=== PATIENT | male | born 1950 | race African-American/Black ===

== ENCOUNTER 2017-02-18 05:32 | Emergency (ER) | payer MEDICARE, OTHER ==
[2017-02-18] MEDS ORDERED: ALBUTEROL SULFATE/IPRATROPIUM 3 ML NEBU IH ONE ×4 (06:00→07:13)
--- NOTE | 2017-02-18 06:07 | ERNOTE ---
Dyspnea - Date Date of Service: 02/18/17 - General Presenting Symptoms: shortness of breath Time Seen by Provider: 02/18/17 06:07 Source: patient, family Exam Limitations: no limitations - Immun/Allergies/Home Medications Immunizations: IMMUNIZATION HX Immunizations Up to Date Yes History of Influenza Vaccine Yes Hx Pneumococcal Vaccination No Allergies/Adverse Reactions: Allergies bee venom protein (honey bee) Allergy (Verified 02/18/17 06:00) Home Medications: HOME MEDICATIONS Albuterol Sulfate [Ventolin Hfa] 1 - 2 puff IH Q4H PRN 11/22/14 [Last Taken Unknown] EPINEPHrine [Epipen 2-Teddy] 0.3 mg IM ONCE PRN 11/22/14 [Last Taken Unknown] Lisinopril/Hydrochlorothiazide [Lisinopril-Hctz 10-12.5 mg Tab] 1 each PO DAILY #14 tablet 05/05/15 [Last Taken Unknown] Albuterol Sulfate [Ventolin HFA] 1 - 2 puff IH QID PRN #1 inhaler 02/18/17 [ Last Taken Unknown] Cholecalciferol [Vitamin D] 1,000 unit MC DAILY 02/18/17 [Last Taken Unknown] Methylprednisolone [Medrol Dosepak] 4 mg PO DAILY #21 tab.ds.pk 02/18/17 [Last Taken Unknown] [place] Oil/[place]-3 Fatty Acids [Fish Oil] 1,200 mg PO DAILY 02/18/17 [Last Taken Unknown] - History of Present Illness Narrative: Pt had onset of shortness of breath last evening accompanied by coughing Severity: moderate Treatment [employer]: albuterol - old inhaler Initiating event: Reports: unknown Frequency of episodes: Reports: occassional episodes - previous episode 2-3 years ago Modifying Factors - (Improves): Reports: nothing Modifying Factors (Worsens): Reports: activity Associated Symptoms-Dyspnea: Reports: denies symptoms Review of Systems - Review of Systems Constitutional: Absent: recent illness, fever EYE: Present: no symptoms reported ENT: Absent: nose congestion, nasal drainage Respiratory: Present: See HPI, other - denies any sputum production Cardiology: Absent: chest pain, palpitations Gastrointestinal/Abdominal: Absent: nausea Genitourinary: Present: no symptoms reported Musculoskeletal: Present: no symptoms reported Skin: Present: no symptoms reported Neurological: Absent: headache, dizziness/light-headedness Endocrine: Present: no symptoms reported Hematologic/Lymphatic: Present: no symptoms reported Psych: Present: no symptoms reported - Patient's Past Medical History Patient History - Medical: No pertinent hx Patient History - Cardiac/Respiratory: COPD, Hypertension Patient History - Cancer: No Hx of Cancer Patient History - Surgical Procedures: Colonoscopy, Other Patient History - Other: None - Social History Living Situations: significant other Psych History: No pertinent hx Smoking Status: Current every day smoker Do you dip or chew tobacco: No Alcohol Use: occasionally Drug Use: marijuana - Immunizations Immunizations Up to Date: Yes Hx Pneumococcal Vaccination: No History of Influenza Vaccine: Yes Physical Exam - Physical Exam General Appearance: Present: wd/wn, alert, mild distress Eye Exam: Normal inspection: bilateral, PERRL: bilateral, EOMI: bilateral Ears, Nose, Throat: Present: normal ENT inspection Neck: Present: normal inspection, nontender, supple Respiratory: Present: rales, rhonchi, wheezing Cardiovascular/Chest: Present: tachycardia Extremity Exam: Present: normal inspection, normal range of motion, no edema Neurological Exam: Present: alert, oriented, normal mood/affect Skin Exam: Present: normal color, warm/dry Lymphatic Exam: Present: no adenopathy ED Progress - Results and Orders Patient's Lab Results:: I have reviewed the patient's lab results. Results and Orders: Laboratory Tests 02/18/17 02/18/17 02/18/17 06:10 06:10 06:10 WBC 8.8 Hgb 14.0 Hct 43.3 Plt Count 237 D-Dimer 0.44 Sodium 144 H Potassium 3.9 Chloride 105 Carbon Dioxide 31.2 Anion Gap 11.7 BUN 15 Creatinine 1.29 Est GFR (Non-Af Amer) 72 BUN/Creatinine Ratio 11.6 Random Glucose 112 H Calcium 9.0 Total Bilirubin 0.3 AST 20 ALT 31 Alkaline Phosphatase 68 Total Protein 7.6 Albumin 4.0 Influenza Type A Ag Influenza Type B Ag 02/18/17 06:10 WBC Hgb Hct Plt Count D-Dimer Sodium Potassium Chloride Carbon Dioxide Anion Gap BUN Creatinine Est GFR (Non-Af Amer) BUN/Creatinine Ratio Random Glucose Calcium Total Bilirubin AST ALT Alkaline Phosphatase Total Protein Albumin Influenza Type A Ag Negative Influenza Type B Ag Negative - Vital Signs Patient's Vital Signs:: I have reviewed the patient's vital signs. Vital Signs: Vital Signs 05/23/17 05:39 Temperature 37.0 C Pulse Rate 99 Respiratory 22 H Rate Blood Pressure 136/99 O2 Sat by Pulse 98 Oximetry - EKG EKG: other EKG read: Interp. by me EKG Comments: Sinus tachycardia with vent rate at 100, due to shortness of breath - X-Ray X-Ray #1 X-Ray: chest Interpretation: Interp. by me X-ray Comments: No infiltrate or effusion. hyperinflation with flattening of diaphragms suggesting COPD. - Progress/Reassessment Chief Complaint: Dyspnea Progress:: Improved Progress Note-Subjective: 02/18/17 07:12 Mild expiratory wheezes remain. Pt no longer feels short of breath 02/18/17 07:19 Discussed smoking cessation, Pt agrees with need to quit, makes no commitment to attempt cessation Departure Clinical Impression: Bronchitis - Departure Disposition: Home Follow Up Needed Condition: Good Instructions: Smoking Cessation, Tips for Success, [id number], Acute Bronchitis, [id number] Additional Instructions: Stopping smoking is your best way to avoid episodes such as this. See your regular doctor in 3-5 days to check on your progress Referrals: Kyle Gagnon DO [Primary Care Provider] - Prescriptions: Albuterol Sulfate [Ventolin HFA] 1 - 2 puff IH QID PRN #1 inhaler PRN Reason: Shortness Of Breath/Wheezing Methylprednisolone [Medrol Dosepak] 4 mg PO DAILY #21 tab.ds.pk
[2017-02-18 06:17] LABS: Hematocrit 43.3 % (42.0-52.0); Mean Cell Volume 85.1 fl (78-100); Mean Corpuscular Hemoglobin 27.5 pg (27-31); Mean Corpuscular Hgb Conc 32.3 g/dl (32-36); Platelet Count 237 K/mm3 (150-450); Red Blood Count 5.09 M/mm3 (4.7-6.0); Red Cell Distribution Width 14.6 % (11.5-14.0); White Blood Count 8.8 K/mm3 (4.0-10.5)
[2017-02-18 06:19] LABS: Total Cells Counted 100
[2017-02-18 06:28] LABS: Anion Gap 11.7 mmol/L (6.8-13.8); BUN/Creatinine Ratio 11.6 (9.0-21.6); Bilirubin, Total 0.3 mg/dL (0.0-1.1); Ca. Corrected For Albumin 8.7 mg/dL (8.4-10.2); Carbon Dioxide 31.2 mmol/L (24-32.6); Potassium 3.9 mmol/L (3.4-4.6); Total Protein 7.6 gm/dL (6.2-8.2)
[2017-02-18 06:29] LABS: Atypical (Reactive) Lymph 1 % (0-2); Eosinophil 1 % (0-3); Immature Granulocyte 2 (0-1); Lymphocyte 27 % (20-51); Monocyte 3 % (0-9); Neutrophil 66 % (42-75); Neutrophil # 5.8 K/mm3 (1.3-6.0); Platelet Estimate Normal (NORMAL); Target Cells Trace
--- OUTSIDE RECORDS SUMMARY | 2017-02-18 06:40 | XMS REPORT | Continuity of Care Document ---
:1950 Author Organization [facility] ([facility]) Address [address] [place] [address] Phone [phone] Care Team Providers Name Role Phone Javier Tan Primary Care Provider [phone] Source Comments This disclosure is being made pursuant to the Care Everywhere program, applicable federal and state laws, and may not contain all informaitonavailable regarding this patient.[facility] ([facility]) Active Allergies and Adverse Reactions Allergen Noted Date Severity Reactions Comments Bee Stings 12/26/2014 Unknown Current Medications Prescription Sig. Disp. Refills Start Date End Date Status HYDROcodone-acetami Take 1-2 Tabs by 30 Tab 0 12/26/2014 Active nophen 5-325 mg per mouth every 4 hours tablet as needed for Pain. Indications: PAIN psyllium Take 2 Wafers by 24 Wafer 11 12/26/2014 Active (METAMUCIL) 1.7 g mouth 2 times daily oral wafer as needed. Indications: CONSTIPATION docusate 100 mg Take 1 Cap by mouth 60 Cap 0 12/26/2014 Active capsule 2 times daily as needed. Indications: CONSTIPATION naproxen sodium Take by mouth. Suspended (ALEVE) 220 mg cap Ca Cmb No.1-Vit Take by mouth. Suspended [id number]-[id number]-B12 (VITAMIN D3, CALCIUM CIT-PHOS,) 120-1,000-10 mg-unit-mg Tab aspirin 81 mg Take 81 mg by mouth Suspended chewable tablet daily. lisinopril-hydrochl Take 1 Tab by mouth Suspended orothiazide 10-12.5 daily. 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 Overview: S/p rigid proctoscopy and attempted transanal excision 3/30/15 Benign essential HTN 04/07/2013 Overview: Monitor, resume home meds as appropriate goals per pt 12/11/2012 Tobacco use disorder 12/11/2012 Overview: Nicotine patch prn, Smoking Cessation consult prn ED (erectile dysfunction) 12/11/2012 Immunizations Name Dates Previously Given Next Due Influenza, quadrivalent PF 08/31/2014 Social History Tobacco Use Types Packs/Day Years Used Date Current Every Day Smoker Cigarettes 0.5 50 Tobacco Cessation:Ready to Quit: No; Counseling Given: Yes Comments: Alcohol Use Drinks/Week oz/Week Comments Yes once a week. drinks hard liquor. Last Filed Vital Signs Vital Sign Reading Time Taken Blood Pressure 115/75 01/13/2015 10:45 AM CDT Pulse 67 01/13/2015 10:45 AM CDT Temperature 35.8 C (96.4 F) 01/13/2015 10:45 AM CDT Respiratory Rate 16 12/26/2014 4:15 PM CDT Height 1.676 m (5' 5.98") 12/26/2014 11:39 AM CDT Weight 70 kg (154 lb 5.2 oz) 01/13/2015 10:45 AM CDT Body Mass Index 24.92 01/13/2015 10:45 AM CDT Oxygen Saturation 100% 01/13/2015 10:45 AM CDT Plan of Care Patient Goal Type Goal Blood Pressure Blood Pressure below 120/80 Lifestyle Quit smoking / using tobacco Reduce coffee intake Health Maintenance Due Date Last Done Comments HCV Screening 1950 Hepatitis B Vaccine (1 of 3 - Primary Series) 1950 Tdap Vaccine 1962 Td Vaccine 1969 Pneumococcal Vaccine (1 of 1 - PPSV23) 1970 Colonoscopy 10/01/2001 FOBT Colon Cancer Screening 2001 Sigmoidoscopy Colon Cancer Screening 2001 Zoster Vaccine 2011 Prostate Cancer Screening 12/11/2013 12/11/2012 Influenza Vaccine: Seasonal (#1) 04/29/2016 08/31/2014 Lipid Disorder Screening 12/11/2017 12/11/2012 Results from Last 3 Months Not on file
[2017-02-18] MEDS ORDERED: METHYLPREDNISOLONE SOD SUCC/PF 125 MG/2 ML VIAL IV ONE (06:47)
[2017-02-18] MEDS ORDERED: METHYLPREDNISOLONE SOD SUCC/PF 125 MG/2 ML VIAL ONE (06:53)
[2017-02-18 07:38] VITALS: BP 127/89
== END 2017-02-18 07:42 | disposition home or self-care (01) ==
LOC: ER 05:32
DX: J40 Bronchitis, not specified as acute or chronic (principal); F17.200 Nicotine dependence, unspecified, uncomplicated; I10 Essential (primary) hypertension